=== PATIENT | male | born 1965 | race Caucasian/White ===

== ENCOUNTER 2016-12-08 06:32 | Day surgery (SDC) | payer OTHER ==
[2016-12-08] MEDS ORDERED: PROPOFOL 10 MG/ML VIAL IV ONE (14:35)
[2016-12-08] MEDS ORDERED: MIDAZOLAM HCL 2MG/2ML VIAL IV ONE (14:35)
[2016-12-08] MEDS ORDERED: LIDOCAINE 2% MDV (20MG/ML) 20ML VIAL IV ONE (14:35)
--- NOTE | 2016-12-13 09:47 | Operative Note ---
DATE OF SURGERY: 12/08/2016 REQUESTING PHYSICIAN: ANDREAS Bates SURGEON: Tyrese Snyder MD POSTOPERATIVE DIAGNOSES: 1. Normal colon with no neoplastic or ulcerative lesions. 2. Grade 1 internal hemorrhoids. OPERATION: COLONOSCOPY and exam. REASON FOR PROCEDURE: This is a 51-year-old male with average risk for colorectal cancer who presented for screening colonoscopy. SEDATION: Sedation as per anesthesia. Pulse oximetry was monitored throughout the duration of the procedure to maintain O2 saturation of 90% or greater. Supplemental oxygen was administered via nasal cannula. Cardiac and vital signs were monitored throughout the duration of the procedure and they were stable. PROCEDURE: Description of the procedure of colonoscopy, risks, and alternatives to the procedure including the risk of bleeding and perforation among others were explained to the patient who voiced understanding and agreed to have the procedure done. A physical examination was performed and the patient was found stable for sedation. The patient was then placed in the left lateral position and sedation was initiated. Digital rectal exam was performed and showed small external hemorrhoids with no palpable rectal masses. A lubricated Olympus PCF-180AL colonoscope was then inserted into the rectum under direct visualization and was advanced to the cecum without difficulty. The ileocecal valve and appendiceal orifice were identified and photographed. The colonic mucosa was carefully examined upon insertion of the colonoscope. There were no lesions noted. The colonoscope was then withdrawn while carefully examining the colonic mucosal surfaces. No lesions were noted. In the rectum, retroflexion was performed and grade 1 internal hemorrhoids were noted. The bowel preparation was good. The patient tolerated the procedure well without any complications. The patient remained with stable vital signs and was sent to the recovery room. PLAN AND RECOMMENDATIONS: 1. The patient is to be on a high-fiber diet. 2. The patient is to have repeat colonoscopy for screening in 10 years. Thank you for allowing me to participate in the care of this patient. CC: ANDREAS Bates Tyrese Snyder MD Date/Time [facility]
== END 2016-12-08 08:00 | disposition home or self-care (01) ==
LOC: HOP 06:32
PROVIDERS: ATTEND Internal Medicine Gastroenterology
DX: Z12.11 Encounter for screening for malignant neoplasm of colon (principal); K64.0 First degree hemorrhoids
CPT/HCPCS: 00810; G0121